=== PATIENT | female | born 1955 | race Caucasian/White ===

== ENCOUNTER 2021-03-27 12:45 | Outpatient (CLI) | payer OTHER, SELFPAY ==
--- NOTE | ~2021-03-27 | XR_ITS ---
XR knee RT 3V 03/27/2021 13:10 Indication: Right knee pain Procedure: 3 views right knee Comparison: No prior studies for comparison. Findings: There is mild-moderate tricompartment osteoarthritis of the right knee. No fracture or trau matic malalignment. No significant joint effusion. Impression: 1: Mild-moderate osteoarthritis of the right knee, most advanced in the patellofemoral compartment. Reviewed, dictated and finalized at location A. Impression: 1: Mild-moderate osteoarthritis of the right knee, most advanced in the patello femoral compartment.
== END 2021-03-27 12:46 | disposition home or self-care (01) ==
LOC: CHSIMG 12:48
PROVIDERS: PCP Internal Medicine; Visit Provider Internal Medicine
DX: M25.561 Pain in right knee (principal)
CPT/HCPCS: 73562

== ENCOUNTER → 2021-05-13 13:44 | Outpatient (CLI) | payer OTHER, SELFPAY ==
--- NOTE | ~2021-05-13 | MR_ITS ---
EXAMINATION: MR knee RT wo con DATE: 05/13/2021 14:59 INDICATION: Right knee pain TECHNIQUE: Magnetic resonance imaging (MRI) of the right knee was performed without intravenous contr ast. Sequences included coronal PD-weighted FSE, coronal PD-weighted FS FSE, sagittal T2-weighted FS E, sagittal PD-weighted FS FSE and axial PD weighted fat saturated FSE. COMPARISON: None. FINDINGS: Medial compartment: Longitudinal horizontal tear of the posterior horn and posterior body of the medial meniscus. There i s deep chondral ulceration and fissuring along the anterior to central weightbearing medial femoral c ondyle. Suggestion of minimal delamination at or near the bone chondral interface along the posterior margin of the region of ulceration. There is subtle cortical irregularity with tiny central subchond ral osteophytes at the region of fissuring. Small region of additional partial thickness chondral fis suring along the medial margin of the posterior weightbearing medial femoral condyle. Cartilage along the medial tibial plateau is relatively preserved. Lateral compartment: Small longitudinal tear extending obliquely to the inferior articular surface of the body and lateral side of the posterior horn of the lateral meniscus. Partial-thickness chondral fissuring without deg enerative subchondral changes at the central aspect of the lateral tibial plateau and juxtaposed ante rior to central weightbearing lateral femoral condyle. Patellofemoral compartment: Additional cartilage loss in places appearing to reach full and near full-thickness at the medial and lateral patellar facets with couple foci of underlying subarticular edema. Additional juxtaposed cho ndral ulceration with more irregular chondral surface and with more extensive scattered mild subartic ular edema at the medial and lateral trochlea and intervening trochlear groove. Ligaments and tendons: Anterior and posterior cruciate ligaments are normal. The medial collateral ligament and fibular neris ateral ligament complex are normal. The extensor mechanism is normal. The visualized medial and later al hamstring tendons as well as the iliotibial band are normal. Fluid: Minimal right knee joint effusion at the lateral gutter of the suprapatellar pouch. Moderate-sized Ba ker's cyst. There is also small amount of fluid in the pes anserinus bursa consistent with mild bursi tis. No loose osteochondral bodies identified. Osseous/other: Small bone island at the lateral trochlea. Normal marrow signal aside from the previously noted mild subarticular edema. No fracture or pathologic marrow replacing process. IMPRESSION: 1. Medial and lateral meniscal tears. 2. Tricompartmental osteoarthritis, moderate severity in the patellofemoral and mild in the medial an d lateral compartments, each with regions of high-grade chondromalacia. 3. Pes anserine bursitis. 4. Moderate-sized Lopes's cyst. Reviewed, dictated and finalized at location A. IMPRESSION: 1. Medial and lateral meniscal tears. 2. Tricompartmental osteoarthritis, moderate severity in the patellofemoral and mild in the medial and lateral compartments, each with regions of high-grade c hondromalacia. 3. Pes anserine bursitis. 4. Moderate-sized Lopes's cyst.
== END ==
PROVIDERS: PCP Internal Medicine; Visit Provider Orthopaedic Surgery
DX: M17.11 Unilateral primary osteoarthritis, right knee (principal); M71.21 Synovial cyst of popliteal space [Baker], right knee; S83.281A Other tear of lateral meniscus, current injury, right knee, initial encounter; S83.241A Other tear of medial meniscus, current injury, right knee, initial encounter; X58.XXXA Exposure to other specified factors, initial encounter
CPT/HCPCS: 73721

== ENCOUNTER 2021-05-27 11:03 | Outpatient (CLI) | payer OTHER, SELFPAY ==
--- NOTE | ~2021-05-27 | XR_ITS ---
XR chest 2V DATE: 05/27/2021 11:35 INDICATION: Preoperative evaluation. Smoker 35 years ago. TECHNIQUE: PA and lateral views COMPARISON: None FINDINGS: Normal heart size. No hilar or mediastinal enlargement. No pulmonary infiltrate or consol idation, pulmonary vascular congestion or pleural effusion or pneumothorax. IMPRESSION: Negative Reviewed, dictated and finalized at location A. BUYER IMPRESSION: Negative
[2021-05-27 11:15] LABS: Basophils Absolute Auto 0.08 K/mm3 (0.00-0.10); Basophils Percent Auto 1.5 % (0.0-1.0); Eosinophils Absolute Auto 0.39 K/mm3 (0.02-0.50); Eosinophils Percent Auto 7.2 % (1.0-6.0); Hematocrit 43.4 % (35.0-49.0); Hemoglobin 14.8 g/dL (12.0-15.0); Immature Granulocyte Absolute 0.01 K/mm3 (0.00-0.00); Immature Granulocyte Percent A 0.2 % (0.0-0.0); Lymphocytes Absolute Auto 1.61 K/mm3 (1.10-4.50); Lymphocytes Percent Auto 29.7 % (18.0-42.0); Mean Corpuscular HGB Conc 34.1 g/dL (32.0-36.0); Mean Corpuscular Hemoglobin 31.6 pg (27.0-31.0); Mean Corpuscular Volume 92.5 fL (78.0-102.0); Monocytes Absolute Auto 0.41 K/mm3 (0.10-0.90); Monocytes Percent Auto 7.6 % (2.0-11.0); Neutrophils Absolute Auto 2.9 K/mm3 (1.7-7.2); Neutrophils Percent Auto 53.8 % (50.0-70.0); Platelet Count Result 328 K/mm3 (150-420); Red Blood Count 4.69 M/mm3 (4.20-5.40); Red Cell Distribution Width 12.2 % (11.6-14.4); White Blood Count 5.4 K/mm3 (4.8-10.8)
[2021-05-27 11:16] LABS: Add Urine Microscopic? YES; Appearance Urine Clear (Clear); Bilirubin Urine Negative (Negative); Blood Urine Negative (Negative); Color Urine Light Yellow (Yellow); Glucose Urine UA Negative (Negative); Ketones Urine Negative (Negative); Leukocyte Esterase Ur 2+ (Negative); Nitrate Urine Negative (Negative); Protein Urine Negative (Negative); Urobilinogen Urine 0.2 mg/dL (0.2-1.0)
[2021-05-27 11:24] LABS: RBC Urine 0-2 /hpf (0-2); Squamous Epithelial Cell Urine Few /hpf (Few)
[2021-05-27 11:25] LABS: Bacteria Urine 1+ /hpf; Mucus Urine Few /lpf
[2021-05-27 12:03] LABS: Alanine Aminotransferase 29 U/L (14-59); Albumin Level 3.9 g/dL (3.4-5.0); Alkaline Phosphatase 88 U/L (46-116); Anion Gap 10 mmol/L (8-16); Aspartate Amino Transferase 22 U/L (15-37); Bilirubin,Total 0.6 mg/dL (0.00-1.00); Blood Urea Nitrogen 13 mg/dL (7-18); Calcium 9.1 mg/dL (8.5-10.1); Carbon Dioxide 26 mmol/L (21-32); Chloride 103 mmol/L (98-108); Estimated Glomerular Filt Rate > 60; Glucose 90 mg/dL (70-99); Osmolality Calculated 288 mOsm/kg (285-295); Potassium 4.6 mmol/L (3.5-5.1); Sodium 139 mmol/L (136-145); Total Protein 7.1 g/dL (6.4-8.2)
== END 2021-05-27 11:04 | disposition home or self-care (01) ==
LOC: CHSLAB 11:05
PROVIDERS: PCP Internal Medicine; Visit Provider Internal Medicine
DX: R94.31 Abnormal electrocardiogram [ECG] [EKG] (principal); Z01.818 Encounter for other preprocedural examination
CPT/HCPCS: 36415; 71046; 80053; 81001; 85025

== ENCOUNTER 2021-05-29 10:08 | Outpatient (CLI) | payer OTHER, SELFPAY ==
--- NOTE | 2021-05-29 10:50 | ECHO_ITS ---
Patient Info Name: Katiuska White Age: 66 years : 1955 Gender: Female Ht: 64 in Wt: 175 lbs BSA: 1.92 m2 HR: 57 bpm BP: 169 / 74 mmHg Exam Date: 05/29/2021 11:58 AM Exam Location: [facility] Patient Status: Outpatient Admit Date: 05/29/2021 Staff Ordering Physician: Andrew Shane MD Photographic Printer: Freda Troy Attending Provider: Andrew Shane MD Exam Type: CA echo doppler color flow Study Info Indications Z01.810 - Encounter for preprocedural cardiovascular examination Complete two-dimensional, color flow and Doppler transthoracic echocardiogram is performed. Strain analysis performed. Summary 1. Complete two-dimensional, color flow and Doppler transthoracic echocardiogram is performed. 2. Left ventricular chamber dimension is normal. 3. Left ventricular systolic function is normal, estimated at 60-65%. 4. The left ventricular diastolic function is grade I diastolic dysfunction. 5. E/e' 9 is minimally elevated. 6. Global longitudinal strain is normal at -22.0%. 7. There is trace tricuspid valve regurgitation. 8. No pulmonary hypertension, estimated pulmonary arterial systolic pressure is 27 mmHg. Left Ventricle E/e' 9 is minimally elevated. Global longitudinal strain is normal at -22.0%. Left ventricular chamber dimension is normal. Left ventricular systolic function is normal, estimated at 60-65%. The left ventricular diastolic function is grade I diastolic dysfunction. Right Ventricle Right ventricular systolic function is normal and with normal TAPSE 2.1 cm. Right ventricular chamber dimension is normal. Left Atria Left atrial chamber dimension is normal. Right Atria Right atrial chamber dimension is normal. Aortic Valve The aortic valve is trileaflet. There is no aortic valve stenosis. There is no aortic valve regurgitation. Pulmonic Valve There is no pulmonic regurgitation. Mitral Valve There is no mitral valve stenosis. There is no mitral valve regurgitation. Tricuspid Valve There is trace tricuspid valve regurgitation. No pulmonary hypertension, estimated pulmonary arterial systolic pressure is 27 mmHg. Pericardium/Pleural There is no pericardial effusion. Inferior Vena Cava Normal inferior vena cava with >50% collapse upon inspiration consistent with normal right atrial pressure, 5 mmHg. Aorta The aortic root size at the sinus of Valsalva is normal. Left Ventricular Outflow Tract Name Value Normal LVOT 2D LVOT Diameter 1.9 cm LVOT Doppler LVOT Peak Velocity 88 cm/s LVOT Peak Gradient 3 mmHg LVOT Mean Gradient 2 mmHg LVOT VTI 23 cm LVOT VTI/AV VTI Ratio 1.0 LVOT Stroke Volume 68 ml Mitral Valve Name Value Normal MV Doppler MV
== END 2021-05-29 10:09 | disposition home or self-care (01) ==
LOC: CHSIMG 10:10
PROVIDERS: PCP Internal Medicine; Visit Provider Internal Medicine
DX: R94.31 Abnormal electrocardiogram [ECG] [EKG] (principal); Z01.818 Encounter for other preprocedural examination
CPT/HCPCS: 93306

== ENCOUNTER → 2021-05-31 00:17 | Outpatient (CLI) | payer OTHER, SELFPAY ==
[2021-05-31 18:14] LABS: SARS-CoV-2 RNA PCR Negative
== END ==
PROVIDERS: PCP Internal Medicine; Visit Provider Orthopaedic Surgery
DX: Z01.812 Encounter for preprocedural laboratory examination (principal); Z20.822 Contact with and (suspected) exposure to COVID-19
CPT/HCPCS: C9803; U0003; U0005

== ENCOUNTER 2021-06-04 01:29 | Day surgery (SDC) | payer OTHER, SELFPAY ==
--- NOTE | 2021-05-28 10:48 | PC.NURSE ---
Report to the Outpatient Waiting Room, entrance under the green pavilion located off [facility], at time 0900 on date 06/04/21. OR Time: 1100. - You and your visitor will be asked a series of questions to screen for COVID 19 for your protection. - A mask is required within the hospital. - Only one visitor is allowed at this time. Patient visitors will be guided where to wait when not with patient. Preoperative COVID Testing Requirements: No COVID Test needed if: (proof is required; if not received patient will have Rapid Test prior to entry) - Patient has received COVID Vaccine at least 14 days prior to procedure date or - Patient has positive COVID test result within last 90 days of surgery date. COVID Test needed if above criteria is not met If not COVID vaccinated a COVID test must be conducted within 72 hours of surgery and patient is asked to isolate self from time of testing until procedure. You will go to the [facility] for your COVID testing. The [employer] [facility] [facility] site is located at the corner of [address] [facility]. COVID TEST: 05/31 AT 0810 You will only be called if COVID results are positive and your surgeon may reschedule your elective surgery date. Patients may have clear liquids (water, carbonated beverages, clear teas, apple juice) until 3 hours prior to surgery with a maximum of 20 ounces. - No food from midnight until time of surgery - Infants may have breast milk until 4 hours before surgery, infant formula 6 hours prior to surgery. - Children will be allowed to drink immediately following surgery. If applicable, please bring a bottle or sippy cup to assist with drinking. Juice, water, soda, and popsicles are readily available. For infants on formula, please bring formula the day of surgery. Pacifiers are allowed. Take the following medications with a SIP of water the morning of surgery: N/A Medications to discontinue per physician: VITAMINS/SUPPLEMENTS Date to take last dose: 05/31/21 Please no make-up, nail german, hairspray, perfume, deodorant, or body powder the day of surgery. No jewelry (including any body piercings) or valuables the day of surgery, leave them at home. Please take a shower or bath the night before, or the morning of, surgery with an antibacterial soap. Wear comfortable, loose fitting clothing. Children are encouraged to wear pajamas. HIBICLENS SHOWER X 3 DAYS - Jewelry must be removed prior to entering the operating room. Rings and piercings that are not removed may be cut off. - The hospital will not accept responsibility for valuables. - Please leave all valuables, including medications, at home the day of surgery. If you are going home after surgery, a licensed road train driver must drive you home. - NO public transportation without another adult. - We recommend that an adult stay with you for 24 hours following discharge. - We also recommend that you do not drive, make important decision, drink alcoholic beverages, or take any drugs that were not prescribed by your health care provider for at least 24 hours after your discharge time. For Pediatric surgeries, we recommend two adults accompany the child home (only one inside the building at this time). Follow any additional instructions given to you from your surgeon. Telephone instructions given to YUE BIGGS and asked if any additional questions and then verbalized understanding. Patient advised to call surgeon office or pre surgery nurse liaison [phone] if any additional questions.
[2021-06-04] VITALS (9 sets, daily range): BP systolic 108–141; BP diastolic 49–84; PULSE 55–67; RESP 10–16; TEMP 36.2–36.9; O2SAT 97–100
--- NOTE | 2021-06-04 07:22 | WPDHPUPDATE1 ---
History and Physical Update Update Date/Time: 06/04/21 07:22 History and Physical has been reviewed, including an updated exam of the patient. There are NO changes in the patient's condition. Risks, benefits, and alternatives have been discussed and questions answered. Patient agrees to proceed with procedure.
[2021-06-04] MEDS: ACETAMINOPHEN 500 MG TABLET 1000 MG PO (08:12)
[2021-06-04] MEDS: CELECOXIB 200 MG CAPSULE PO (08:13)
--- NOTE | 2021-06-04 08:22 | P.PNAN_ITS ---
Anes - Initial Pre Proc Eval Procedure: Operation Date: 06/04/21 09:00 Proposed Procedures p Right Knee Arthroscopy, Proceed As Indicated - Ace Ruiz MD Date/Time: 06/04/21 08:22 Surgeon: Ace Ruiz MD Pre Op Diagnosis: right knee medial and lateral meniscus tear Patient Data Age: 66 Gender: F Height: 1.63 m Weight: 81.6 kg Allergies Allergy/AdvReac Type Severity Reaction Status Date / Time codeine AdvReac Intermediate Nausea and Verified 06/04/21 08:09 Vomiting Home Medications Medication Instructions Recorded Confirmed Type calcium carbonate 260 mg calcium 260 mg PO DAILY 04/11/21 06/04/21 History (648 mg) tablet cholecalciferol (vitamin D3) 25 25 mcg PO DAILY 04/11/21 06/04/21 History mcg (1,000 unit) capsule ferrous gluconate 240 mg (27 mg 240 mg PO DAILY 04/11/21 06/04/21 History iron) tablet multivitamin 1 tablet PO DAILY 04/11/21 06/04/21 History chlorhexidine gluconate 4 % 1 applic TOPICAL ONCE #237 ml 05/26/21 05/28/21 Rx topical liquid Patient hx anesthesia problems: none Family hx anesthesia problems: none Results Review: All pre-operative results and documents have been reviewed as part of the pre-operative evaluation. [facility] Past Medical History Medical History History of anesthesia complications Right knee pain Surgical History Surgical History History of bunionectomy 1997 History of hand surgery 2008 History of tubal ligation 1988 Family History Family History Unknown Family history of cancer prostate, breast, and leukemia Other Family history of arthritis Heart disease Hypertension Social History Social History Smoking packs per day: 2 Smoking cigarettes per day: 40.0 Years smoked: 8 Smoking pack-years: 16.00 Smoking status: Former smoker Tobacco type: cigarettes Smoking end date: 07/12/83 Alcohol intake: current Drinks per week: 7 Substance use: never Substance use type: does not use Living arrangements: with family Gender identity (if verbalized by the patient): Female Spiritual care concerns: No Anes - Eval Final PreProcedure Day of Procedure 06/04/21 08:22 Patient weight: obese Heart: regular rate and rhythm Lungs: clear to auscultation Airway: Mallampati scale class 1 Neurological: alert and oriented Last oral intake: >/= 8 hours ASA classification: II Emergent: no Anesthetic plan: proceed Anesthesia type and monitoring: general LMA and standard monitoring Results Review: All pre-operative results and documents have been reviewed as part of the pre-operative evaluation. Informed Consent: The patient's anesthetic plan and its attendant risks and benefits were discussed with the patient/family/POA. Questions were solicited and answers provided to the satisfaction of the patient/family/POA.
[2021-06-04] MEDS: LACTATED RINGERS 1,000 ML 30 ML IV CONT (08:38)
[2021-06-04] MEDS: ceFAZolin 2 GM/D5W 50 ML 2 GM/50 ML BAG IVPB (08:43)
[2021-06-04] MEDS: methylPREDNISolone ACETATE 80 MG/ML VIAL IM (09:15)
--- NOTE | 2021-06-04 10:04 | W.PM.PROC2 ---
Procedure Note - Detailed Date of Procedure 06/04/21 Pre-op Diagnosis right knee medial and lateral meniscus tear Post-op Diagnosis same Procedure Performed RIGHT KNEE SCOPE Surgeon Ace Ruiz MD Anesthesia general Description of Procedure PATIENT WAS TAKEN TO THE OR. RIGHT LEG WAS PREPPED AND DRAPED STERILE. TROCARS WERE PLACED IN THE USUAL FASHION. CAMERA WAS INTRODUCED. THERE WAS CHONDROMALACIA TO THE PATELLA FEMORAL JOINT. THERE WAS A LOT OF SYNOVITIS IN ALL COMPARTMENTS. THE MEDIAL COMPARTMENT SHOWED CHONDROMALACIA TO THE MEDIAL FEMORAL CONDYLE. A SHAVER WAS USED TO PREFORM A CHONDROPLASTY. THERE WAS A COMPLEX MEDIAL MENISCUS TEAR. THE TEAR WAS RESECTED WITH A BITER AND A SHAVER DOWN TO A SMOOTH BASE. ABOUT 30% OF THE MENISCUS WAS REMOVED. THE ACL WAS INTACT. THERE WAS A LARGE OSTEOPHYTE THAT WAS RESECTED IN THE NOTCH. THE LATERAL MENISCUS WAS TORN AT THE ANTERIOR HORN AND THE MID SUBSTANCE. THE TEAR WAS RESECTED. THE LAT COMPARTMENT HAD GRADE 2 CHONDROMALACIA AT THE LATERAL PLATEAU. CHONDROPLASTY WAS PREFORMED. A SYNOVECTOMY WAS PREFORMED WELL. THE PATELLO FEMORAL JOINT UNDERWENT CHONDROPLASTY. THERE WAS GRADE 3 CHONDROMALACIA IN MOST OF THE TROCHLEA AND PART OF THE PATELLA. SYNOVECTOMY WAS PREFORMED IN THE SUPERIOR MEDIAL COMPARTMENT. THE WOUNDS WERE APPROXIMATED WITH 4.0 NYLON. STERILE DRESSING WAS APPLIED. PATIENT WAS EXTUBATED. Estimated Blood Loss 5 Complications No immediate complications Condition stable Disposition PACU
[2021-06-04] MEDS: fentaNYL CITRATE INJ (*CRX) 100 MCG/2 ML VIAL 25 MCG IV PUSH ×2 (10:14→10:17)
[2021-06-04] MEDS: oxyCODONE HCL (*CRX) 5 MG TAB IR PO (10:55)
--- NOTE | 2021-06-04 11:08 | SUR.PHASEII ---
PT called for eval.
--- NOTE | 2021-06-04 11:24 | SUR.PHASEII ---
PT at bedside
== END 2021-06-04 11:58 | disposition home or self-care (01) ==
PROVIDERS: PCP Internal Medicine; Visit Provider Orthopaedic Surgery
PROC: (CPT 29870; principal; 2021-06-04 09:00)
DX: M23.231 Derangement of other medial meniscus due to old tear or injury, right knee (principal); M23.241 Derangement of anterior horn of lateral meniscus due to old tear or injury, right knee; M65.861 Other synovitis and tenosynovitis, right lower leg; M25.561 Pain in right knee; M22.41 Chondromalacia patellae, right knee; E66.9 Obesity, unspecified; Z68.30 Body mass index [BMI] 30.0-30.9, adult; Z87.891 Personal history of nicotine dependence
CPT/HCPCS: 29880; 97161; A9270; C9803; J0690; J1040; J1100; J2250; J2405; J2704; J3010; J7120; U0003; U0005

== ENCOUNTER 2022-11-05 11:51 | Outpatient (CLI) | payer MEDICARE, SELFPAY ==
--- NOTE | ~2022-11-05 | XR_ITS ---
Left Knee Technique: AP, lateral, and sunrise views were obtained. Clinical History: Pain Findings: No fracture or dislocation is seen. Osseous alignment is anatomic. Minimal patellar spurrin g noted. Soft tissues are unremarkable. No joint effusion is seen. Impression: Minimal patellar spurring. Reviewed, dictated and finalized at location . Impression: Minimal patellar spurring.
== END 2022-11-05 11:52 | disposition home or self-care (01) ==
LOC: CHSIMG 11:56
PROVIDERS: PCP Internal Medicine; Visit Provider Internal Medicine
DX: M25.562 Pain in left knee (principal); M76.52 Patellar tendinitis, left knee
CPT/HCPCS: 73562

== ENCOUNTER 2022-12-16 00:52 | Day surgery (SDC) | payer MEDICARE, SELFPAY ==
[2022-12-09 09:15] VITALS: BMI 26.1
[2022-12-16 07:21] VITALS: BP 139/64; PULSE 61; RESP 19; TEMP 36.4; O2SAT 100
[2022-12-16] MEDS: LACTATED RINGERS 1,000 ML 150 ML IV CONT (07:33)
--- NOTE | 2022-12-16 07:41 | WPDANESEPPF ---
Anes - Initial Pre Proc Eval Procedure: Operation Date: 12/16/22 08:30 Proposed Procedures p Colonoscopy - Abhinav Avila MD Date/Time: 12/16/22 07:41 Surgeon: Abhinav Avila MD Pre Op Diagnosis: hx colon polyps Patient Data Age: 67 Gender: F Height: 1.63 m Weight: 68.4 kg Last Vital Signs Temp 36.4 C L 12/16/22 07:21 Pulse 61 12/16/22 07:21 Resp 19 12/16/22 07:21 BP 139/64 12/16/22 07:21 Pulse Ox 100 12/16/22 07:21 O2 Del Method Room Air 12/16/22 07:21 Allergies Allergy/AdvReac Type Severity Reaction Status Date / Time codeine AdvReac Intermediate Nausea and Verified 12/16/22 07:20 Vomiting Home Medications Medication Instructions Recorded Confirmed Type calcium carbonate 260 mg calcium 260 mg PO DAILY 04/11/21 12/09/22 History (648 mg) tablet cholecalciferol (vitamin D3) 25 25 mcg PO DAILY 04/11/21 12/09/22 History mcg (1,000 unit) capsule ferrous gluconate 240 mg (27 mg 240 mg PO DAILY 04/11/21 12/09/22 History iron) tablet (Ferate) multivitamin (Daily Multi-Vitamin 1 tablet PO DAILY 04/11/21 12/09/22 History tablet) chlorhexidine gluconate 4 % 1 applic topical ONCE #237 mL 05/26/21 12/09/22 Rx topical liquid (Hibiclens) Patient hx anesthesia problems: none Family hx anesthesia problems: none Results Review: All pre-operative results and documents have been reviewed as part of the pre-operative evaluation. [facility] Past Medical History Medical History History of anesthesia complications Right knee pain Surgical History Surgical History History of bunionectomy 1997 History of hand surgery 2007 History of tubal ligation 1988 Family History Family History Unknown Family history of cancer prostate, breast, and leukemia Other Family history of arthritis Heart disease Hypertension Social History Social History Smoking packs per day: 2 Smoking cigarettes per day: 40.0 Years smoked: 8 Smoking pack-years: 16.00 Smoking status: Former smoker Tobacco type: cigarettes Smoking end date: 07/12/83 Alcohol intake: current Drinks per week: 7 Alcohol use details: wine in the evening Substance use: never Substance use type: does not use Living arrangements: with family Occupation/Education: retired Gender identity (if verbalized by the patient): Female Spiritual care concerns: No Anes - Eval Final PreProcedure Day of Procedure 12/16/22 07:41 Patient weight: normal Heart: regular rate and rhythm Lungs: clear to auscultation Airway: Mallampati scale class 1 Neurological: alert and oriented Last oral intake: >/= 8 hours ASA classification: II Emergent: no Anesthetic plan: proceed Anesthesia type and monitoring: general GIVS and standard monitoring Results Review: All pre-operative results and documents have been reviewed as part of the pre-operative evaluation. Informed Consent: The patient's anesthetic plan and its attendant risks and benefits were discussed with the patient/family/POA. Questions were solicited and answers provided to the satisfaction of the patient/family/POA.
--- NOTE | 2022-12-16 08:14 | PM.HPGS ---
History of Present Illness History of Present Illness Consent: Risks, benefits, and alternatives have been discussed and questions answered. Patient agrees to proceed with procedure. Chief complaint: hx colon polyps Narrative: Katiuska White is a 67 year old female here for screening colonoscopy, last one about 6 years ago Review of Systems Constitutional: Constitutional: Denies headache(s) and Denies weakness Eyes: Eyes: Denies blurry vision ENT: Reports Normal hearing present, Denies headache(s) and Denies neck pain Cardiovascular: Cardiovascular: Denies chest pain and Denies dyspnea Respiratory: Respiratory: Denies dyspnea Gastrointestinal: Gastrointestinal: Reports no additional gastrointestinal complaints Genitourinary: Genitourinary: Denies dysuria Musculoskeletal: Musculoskeletal: Denies neck pain Integumentary/Breasts: Skin/Breast: Denies dry skin Neurologic: Reports Normal hearing present, Denies headache(s) and Denies weakness Psychiatric: Psychiatric: Denies anxiety Endocrine: Endocrine: Denies change in body appearance Hematologic/Lymphatic: Hematologic/Lymphatic: Denies easy bleeding Allergic/Immunologic: Allergic/Immunologic: Denies urticaria PMFSH Past Medical History Medical History (Updated 12/16/22 @ 08:14 by Abhinav Avila MD) Colon cancer screening History of anesthesia complications Right knee pain Surgical History Surgical History History of bunionectomy 1997 History of hand surgery 2008 History of tubal ligation 1988 Family History Family History Unknown Family history of cancer prostate, breast, and leukemia Other Family history of arthritis Heart disease Hypertension Social History Social History Smoking packs per day: 2 Smoking cigarettes per day: 40.0 Years smoked: 8 Smoking pack-years: 16.00 Smoking status: Former smoker Tobacco type: cigarettes Smoking end date: 07/12/83 Alcohol intake: current Drinks per week: 7 Alcohol use details: wine in the evening Substance use: never Substance use type: does not use Living arrangements: with family Occupation/Education: retired Gender identity (if verbalized by the patient): Female Spiritual care concerns: No Meds Home Medications and Allergies Home Medications Medication Instructions Recorded Confirmed Type calcium carbonate 260 mg calcium 260 mg PO DAILY 04/11/21 12/09/22 History (648 mg) tablet cholecalciferol (vitamin D3) 25 25 mcg PO DAILY 04/11/21 12/09/22 History mcg (1,000 unit) capsule ferrous gluconate 240 mg (27 mg 240 mg PO DAILY 04/11/21 12/09/22 History iron) tablet (Ferate) multivitamin (Daily Multi-Vitamin 1 tablet PO DAILY 04/11/21 12/09/22 History tablet) chlorhexidine gluconate 4 % 1 applic topical ONCE #237 mL 05/26/21 12/09/22 Rx topical liquid (Hibiclens) Allergies Allergy/AdvReac Type Severity Reaction Status Date / Time codeine AdvReac Intermediate Nausea and Verified 12/16/22 07:20 Vomiting Vital Signs Vital Signs - 24 hr 12/16/22 07:21 Temperature 97.5 F L Pulse Rate 61 Respiratory Rate 19 Blood Pressure 139/64 Pulse Oximetry 100 Oxygen Delivery Room Air Exam Const: General: comfortable and no acute distress HENMT: Face/Nose/Sinus: Normal nares present Eyes: General: appearance normal, both eyes and all related structures Neck: Neck: no JVD Resp: Auscultation: clear to auscultation bilaterally Cardio: Rate: regular rate Rhythm: regular rhythm GI: Inspection: non-distended GI Palp: Yes Soft to palpation Skin: General skin exam: normal color Neuro: General: gait normal Speech: normal speech Extrem: General: normal to inspection Psych: Mental Status: mental status grossly normal
[2022-12-16 08:33] VITALS: BP 117/59; PULSE 60; RESP 20; O2SAT 95
[2022-12-16 08:43] VITALS: BP 134/68; PULSE 58; RESP 18; O2SAT 100
[2022-12-16 08:53] VITALS: BP 142/58; PULSE 52; RESP 18; O2SAT 99
== END 2022-12-16 09:03 | disposition home or self-care (01) ==
PROVIDERS: PCP Internal Medicine; Visit Provider Internal Medicine Gastroenterology
PROC: 0DJD8ZZ Inspection of Lower Intestinal Tract, Via Natural or Artificial Opening Endoscopic (ICD-10-PCS; CPT 45378; principal; 2022-12-16 08:30)
DX: Z12.11 Encounter for screening for malignant neoplasm of colon (principal); K57.30 Diverticulosis of large intestine without perforation or abscess without bleeding; K64.8 Other hemorrhoids; Z86.010 Personal history of colon polyps; Z87.891 Personal history of nicotine dependence
CPT/HCPCS: G0105; J2704; J7120

== ENCOUNTER 2023-05-26 07:56 | Outpatient (CLI) | payer MEDICARE, SELFPAY ==
[2023-05-26 08:12] LABS: Appearance Urine Clear (Clear); Bilirubin Urine Negative (Negative); Blood Urine Negative (Negative); Color Urine Yellow (Yellow); Glucose Urine UA Negative (Negative); Ketones Urine Negative (Negative); Leukocyte Esterase Ur Negative LEU/UL (Negative); Nitrate Urine Negative (Negative); Protein Urine Negative (Negative); Specific Grav Ur 1.015 (1.010-1.020); Urobilinogen Urine 0.2 mg/dL (0.2-1.0); pH Urine 7.5 (5.0-8.0)
[2023-05-26 08:13] LABS: Basophils Absolute Auto 0.05 K/mm3 (0.00-0.10); Eosinophils Absolute Auto 0.18 K/mm3 (0.02-0.50); Eosinophils Percent Auto 3.6 % (1.0-6.0); Hematocrit 41.2 % (35.0-42.0); Hemoglobin 13.7 g/dL (11.7-13.8); Immature Granulocyte Absolute 0.01 K/mm3 (0.00-0.00); Immature Granulocyte Percent A 0.2 % (0.0-0.0); Lymphocytes Absolute Auto 1.27 K/mm3 (1.10-4.50); Lymphocytes Percent Auto 25.7 % (18.0-42.0); Mean Corpuscular HGB Conc 33.3 g/dL (32.0-36.0); Mean Corpuscular Hemoglobin 30.9 pg (27.0-31.0); Mean Platelet Volume 10.4 fl (9.2-11.8); Monocytes Percent Auto 8.1 % (2.0-11.0); Neutrophils Percent Auto 61.4 % (50.0-70.0); Platelet Count Result 333 K/mm3 (150-420); Red Blood Count 4.43 M/mm3 (4.20-5.40); Red Cell Distribution Width 12.2 % (11.6-14.4); White Blood Count 4.9 K/mm3 (4.8-10.8)
[2023-05-26 08:19] LABS: Add Urine Microscopic? NO
[2023-05-26 09:04] LABS: Alanine Aminotransferase 33 U/L (14-59); Albumin Level 3.6 g/dL (3.4-5.0); Alkaline Phosphatase 92 U/L (46-116); Anion Gap 6 mmol/L (8-16); Aspartate Amino Transferase 27 U/L (15-37); Bilirubin,Total 0.8 mg/dL (0.00-1.00); Blood Urea Nitrogen 15 mg/dL (7-18); Calcium 9.1 mg/dL (8.5-10.1); Carbon Dioxide 30 mmol/L (21-32); Chloride 104 mmol/L (98-108); Cholesterol 196 mg/dL (0-200); Estimated Glomerular Filt Rate > 60; Glucose 85 mg/dL (70-99); HDL Direct 75 mg/dL (40-60); LDL Cholesterol Calculated 111 mg/dL (<130); Osmolality Calculated 289 mOsm/kg (285-295); Potassium 4.4 mmol/L (3.5-5.1); Sodium 140 mmol/L (136-145); Thyroid Stimulating Hormone 3.13 uIU/mL (0.36-3.74); Total Protein 6.8 g/dL (6.4-8.2); Triglycerides 50 mg/dL (0-150)
[2023-05-31 18:11] LABS: Vitamin D 25 Hydroxy 35 ng/mL (30-100)
== END 2023-05-26 07:57 | disposition home or self-care (01) ==
LOC: CHSLAB 07:59
PROVIDERS: PCP Internal Medicine; Visit Provider Nurse Practitioner Family
DX: R42 Dizziness and giddiness (principal); E78.5 Hyperlipidemia, unspecified; E55.9 Vitamin D deficiency, unspecified; R53.83 Other fatigue
CPT/HCPCS: 36415; 80053; 80061; 81003; 82306; 84439; 84443; 85025

== ENCOUNTER 2023-06-11 07:41 | Outpatient (CLI) | payer MEDICARE, SELFPAY ==
--- NOTE | ~2023-06-11 | MM_ITS ---
EXAMINATION: MM screening katerine BI w cyndee HISTORY: Screening mammogram TECHNIQUE: Craniocaudal and mediolateral oblique 3-D tomosynthesis images were obtained and synthetic 2-D images were generated. CAD analysis was submitted and interpreted. COMPARISON: 04/07/2018 bilateral screening mammogram BREAST PARENCHYMAL COMPOSITION: The breasts are heterogeneously dense, which may obscure small masses . FINDINGS: History of left benign lumpectomy. Stable mild fibroglandular asymmetry. There is no eviden ce of suspicious mass, calcification, or architectural distortion to suggest malignancy in either trudy ast. There has been no suspicious interval change. IMPRESSION: 1. No mammographic evidence of malignancy. 2. Recommend routine screening mammography in one year. BI-RADS Category 2: Benign finding(s). Reviewed, dictated and finalized at location A. LE INSTALLER
== END 2023-06-11 07:42 | disposition home or self-care (01) ==
PROVIDERS: PCP Internal Medicine; Visit Provider Nurse Practitioner Family
DX: Z12.31 Encounter for screening mammogram for malignant neoplasm of breast (principal)
CPT/HCPCS: 77063; 77067

== ENCOUNTER 2024-12-21 11:49 | Outpatient (CLI) | payer MEDICARE, SELFPAY ==
--- NOTE | ~2024-12-21 | DEXA_ITS ---
Bone Density Report Name: YUE BIGGS Age: 69 Sex: Female Ethnicity: White Date of : 1955 Indication: postmenopausal; screening for osteoporosis; Referring Provider: PATT*ELIE Lockett Study: Bone densitometry was performed. Exam Date: December 21, 2024 Accession number: [id number] Bone Density: Region BMD T-score Z-score Classification AP Spine(L1, L2) 0.894 -0.8 1.1 Normal Femoral Neck (Left) 0.679 -1.5 0.1 Osteopenia Total Hip (Left) 0.880 -0.5 0.9 Normal Femoral Neck (Right) 0.719 -1.2 0.5 Osteopenia Total Hip (Right) 0.859 -0.7 0.7 Normal Femoral Neck Mean 0.699 -1.4 0.3 Osteopenia Total Hip Mean 0.869 -0.6 0.8 Normal World Health Organization criteria for BMD impression classify patients as: Normal (T-score at or above -1.0), Osteopenia (T-score between -1.0 and -2.5), or Osteoporosis (T-score at or below -2.5). 10-year Fracture Risk(1): Major Osteoporotic Fracture 9.3% Hip Fracture 1.1% Reported Risk Factors: [place] (), Neck BMD=0.679, BMI=30.0 (1) FRAX(R) Version 3.08. Fracture probability calculated for an untreated patient. Fracture probability may be lower if the patient has received treatment. Clinical Information Provided by Patient: Has used the following medications: Vitamin D, Calcium, multi Patient maximum height was 64 Menopause Age: 57 No regular weight bearing exercise Drinks caffeinated beverages Onset of menses at age 12 Number of children 4 Impression: The patient has low bone mass, based on the Left Femoral Neck T-score. Discussion: BONE DENSITY IS LOW AT ONE OR MORE SKELETAL SITES. This patient's lowest T-score is low at one or more skeletal sites. It meets the World Health Organization's (WHO) criteria for ?low bone mass? (T-score between -1.0 and -2.5). The patient's 10-year risk of fracture as calculated by FRAX is less than the threshold where pharmacological therapy is recommended by the National Osteoporosis Foundation (NOF). However, all treatment decisions require clinical judgment and consideration of individual patient factors, including patient preferences, comorbidities, previous drug use, risk factors not captured in the FRAX model (e.g., frailty, falls, vitamin D deficiency, increased bone turnover, interval significant decline in bone density) and possible under or overestimation of fracture risk by FRAX. The patient should follow a healthful lifestyle (good nutrition with adequate calcium and vitamin D, and appropriate weight-bearing exercise). Follow-Up: Consider repeating this study in 2 to 3 years to reassess this patient's status, or sooner if there is some new clinical indication. Reported by: ART on 12/21/2024 12:25:00 PM. Reviewed, dictated and finalized at location A.
--- NOTE | ~2024-12-21 | MM_ITS ---
EXAMINATION: MM screening katerine BI w cyndee HISTORY: Screening TECHNIQUE: Craniocaudal and mediolateral oblique 3-D tomosynthesis images were obtained and synthetic 2-D images were generated. CAD analysis was submitted and interpreted. COMPARISON: Comparison to multiple prior studies sequentially, with oldest reviewed study dated 04/07. BREAST PARENCHYMAL COMPOSITION: Not dense: There are scattered areas of fibroglandular density. FINDINGS: There is no evidence of suspicious mass, calcification, or architectural distortion to sugg est malignancy in either breast. There has been no suspicious interval change. IMPRESSION: 1. No mammographic evidence of malignancy. 2. Recommend routine screening mammography in one year. BI-RADS Category 1: Negative Reviewed, dictated and finalized at location B.
--- OUTSIDE RECORDS SUMMARY | 2024-12-21 12:40 | XMS_ITS | Clinical Summary ---
Author Organization [address] Address [address] [place] [id number] Care Team Providers Care Hot Mill Operator Name Role Phone Guillermina Xie Primary Care Provider [phone] Norm Santiago MD Unavailable [phone] Allergies Active Allergy Reactions Criticality Noted Date Comments Codeine Phosphate Nausea & Vomiting Low 12/09/2018 Medications cholecalciferol (VITAMIN D-3) 1,000 unit capsule 1,000 Units daily 11/08/2017 Active clobetasol (TEMOVATE) 0.05 % cream 07/03/2019 Active tacrolimus (PROTOPIC) 0.1 % ointment 07/03/2019 Active Active Problems Problem Noted Date Diagnosed Date BMI 29.0-29.9,adult 07/17/2019 Assessment & Plan (07/17/2019 11:27 AM MEMBER OF CONGRESS): Educated patient on healthy diet/exercise plan. Exercise 150min-300min per week of moderate intensity. Diet: good, healthy protein (eggs, nuts, peanut butter, chicken, fish, turkey, less pork/beef), lots of vegetables, less carbohydrates and less sugar. Flexural eczema 07/17/2019 Assessment & Plan (07/17/2019 11:27 AM MEMBER OF CONGRESS): Stable on meds Health maintenance examination 06/13/2019 Overview (07/17/2019): PMH: 07/17/2019 Last pap: 10/2017 Last mammogram: 03/2018 Last dexa: Last colonoscopy/cologuard: 02/2013 repeat 2018 Last Hep C: 10/2017 Last tdap: 10/25/2009, 07/17/2019 Last Prevnar/pneumovax: Last Shingrix: 02/2018, 10/2017 Last eye exam: 2019 Assessment & Plan (07/17/2019 9:34 AM MEMBER OF CONGRESS): PMH: 07/17/2019 Last pap: 10/2017 Last mammogram: 03/2018 Last dexa: Last colonoscopy/cologuard: 02/2013 repeat 2018 Last Hep C: 10/2017 Last tdap: 10/25/2009, 07/17/2019 Last Prevnar/pneumovax: Last Shingrix: 02/2018, 10/2017 Last eye exam: 2019 Vitamin D deficiency 11/08/2017 Assessment & Plan (07/17/2019 11:27 AM MEMBER OF CONGRESS): Stable, continue vit d CMC arthritis, thumb, degenerative 09/16/2015 Assessment & Plan (07/17/2019 11:27 AM MEMBER OF CONGRESS): Stable prn otc meds (ibu or tylenol) Resolved Problems Problem Noted Date Diagnosed Date Resolved Date Neck pain 12/09/2018 06/13/2019 Assessment & Plan (12/09/2018 4:06 PM CDT): Handout given on neck exercises. Patient to try massage. Patient to try moist heat 3 times a day. Patient to try [id number] anti-inflammatories as needed. If no improvement in the next 5-7 days will order physical therapy. Vertigo 12/09/2018 06/13/2019 Assessment & Plan (12/09/2018 4:07 PM CDT): Patient's vertigo could be due to possible allergy issues. Patient will continue taking her allergy medicine. An adding a steroid nasal spray. Handout given on this vestibular exercises to perform at home. Return to clinic as needed Immunizations Immunization Administration Dates Next Due Influenza, Unspecified 04/08/2018,06/22/2017 Tdap 07/17/2019,10/25/2009 ZOSTER Recombinant 02/21/2018,10/23/2017 Surgical History Surgery Date Site/Laterality Comments TUBAL LIGATION 07/12/1987 - 07/11/1988 BUNIONECTOMY 07/12/2007 - 07/11/2008 Bilateral HAND SURGERY 07/12/2016 - 07/11/2017 Right COLONOSCOPY 02/09/2013 - 03/11/2013 repeat 2018 Medical History Medical History Date Comments Vertigo 12/09/2018 Family History Medical History Relation Name Comments Rheum arthritis Brother 1 corneal transplant Brother 1 Leukemia Brother 2 Hypertension Brother 3 Prostate cancer Father Deep vein thrombosis Mother Pectus carinatum Mother Pulmonary embolism Mother Breast cancer Sister Graves' disease Sister Hypertension Sister Relation Name Status Comments Brother 1 Brother 2 Brother 3 Alive Brother 4 Alive Father (Age 84) Mother (Age 93) Sister Alive Social History Tobacco Use Types Packs/Day Years Used Date Smoking Tobacco: Former Cigarettes Q uit: 07/12/1982 Smokeless Tobacco: Never Alcohol Use Standard Drinks/Week Comments Yes 0 (1 standard drink = 0.6 oz pur e alcohol) AUDIT-C Answer Date Recorded Frequency of Alcohol Consumption 2-3 times a wee k 06/16/2019 Average Number of Drinks Not on file 019 Frequency of Binge Drinking Not on file 12/2018 PHQ-2 Answer Date Recorded PHQ-2 Total Score (If total score is 3 or more points, staff should administer the PHQ-9) 0 02/07/2021 Personal Safety Answer Date Recorded Getting School Help Needed Not on file 09/04 Comments No Sex and Gender Information Value Date Recorded Sex Assigned at Not on file Legal Sex Female 3:08 AM MEMBER OF CONGRESS Gender Identity Not on file Sexual Orientation Not on file Obstetrics History Last Filed Vital Signs Vital Sign Reading Time Taken Comments Blood Pressure 128/80 02/07/2021 12:54 PM CDT Pulse 76 02/07/2021 12:54 PM CDT Temperature 36.4 C (97.6 F) 02/07/2021 12:54 PM CDT Respiratory Rate 17 02/07/2021 12:54 PM CDT Oxygen Saturation 99% 02/07/2021 12:54 PM CDT Inhaled Oxygen Concentration - - Weight 78.7 kg (173 lb 9.6 oz) 02/07/2021 12:54 PM CDT Height 162.6 cm (5' 4) 02/07/2021 12:54 PM CDT Body Mass Index 29.8 02/07/2021 12:54 PM CDT Plan of Treatment Not on file Insurance [facility] CMR Care Teams Hot Mill Operator Relationship Specialty Start Date End Date Guillermina Xie PA [address] [place] [address] PCP - General Physician Snag Grinder 12/06/18 Norm Santiago MD [address] [place], [place] [id number] Consulting Physician Family Medicine 12/06/18
--- OUTSIDE RECORDS SUMMARY | 2024-12-21 12:40 | XMS_ITS | Referral Summary ---
Author Organization [address] Address [address] [place] [id number] Care Team Providers Care Hospital Television Rental Clerk Name Role Phone Guillermina Xie Primary Care Provider [phone] Norm Santiago MD Unavailable [phone] Allergies Active Allergy Reactions Criticality Noted Date Comments Codeine Phosphate Nausea & Vomiting Low 12/09/2018 Medications cholecalciferol (VITAMIN D-3) 1,000 unit capsule 1,000 Units daily 11/08/2017 Active clobetasol (TEMOVATE) 0.05 % cream 07/03/2019 Active tacrolimus (PROTOPIC) 0.1 % ointment 07/03/2019 Active Active Problems Problem Noted Date Diagnosed Date BMI 29.0-29.9,adult 07/17/2019 Assessment & Plan (07/17/2019 11:27 AM PLASTICS PROCESS HAND): Educated patient on healthy diet/exercise plan. Exercise 150min-300min per week of moderate intensity. Diet: good, healthy protein (eggs, nuts, peanut butter, chicken, fish, turkey, less pork/beef), lots of vegetables, less carbohydrates and less sugar. Flexural eczema 07/17/2019 Assessment & Plan (07/17/2019 11:27 AM PLASTICS PROCESS HAND): Stable on meds Health maintenance examination 06/13/2019 Overview (07/17/2019): PMH: 07/17/2019 Last pap: 10/2017 Last mammogram: 03/2018 Last dexa: Last colonoscopy/cologuard: 02/2013 repeat 2018 Last Hep C: 10/2017 Last tdap: 10/25/2009, 07/17/2019 Last Prevnar/pneumovax: Last Shingrix: 02/2018, 10/2017 Last eye exam: 2019 Assessment & Plan (07/17/2019 9:34 AM PLASTICS PROCESS HAND): PMH: 07/17/2019 Last pap: 10/2017 Last mammogram: 03/2018 Last dexa: Last colonoscopy/cologuard: 02/2013 repeat 2018 Last Hep C: 10/2017 Last tdap: 10/25/2009, 07/17/2019 Last Prevnar/pneumovax: Last Shingrix: 02/2018, 10/2017 Last eye exam: 2019 Vitamin D deficiency 11/08/2017 Assessment & Plan (07/17/2019 11:27 AM PLASTICS PROCESS HAND): Stable, continue vit d CMC arthritis, thumb, degenerative 09/16/2015 Assessment & Plan (07/17/2019 11:27 AM PLASTICS PROCESS HAND): Stable prn otc meds (ibu or tylenol) Resolved Problems Problem Noted Date Diagnosed Date Resolved Date Neck pain 12/09/2018 06/13/2019 Assessment & Plan (12/09/2018 4:06 PM CDT): Handout given on neck exercises. Patient to try massage. Patient to try moist heat 3 times a day. Patient to try [id number] anti-inflammatories as needed. If no improvement in [...] Unspecified 04/08/2018,06/22/2017 Tdap 07/17/2019,10/25/2009 ZOSTER Recombinant 02/21/2018,10/23/2017 Social History Tobacco Use Types Packs/Day Years [...] on file Legal Sex Female 3:08 AM PLASTICS PROCESS HAND Gender Identity Not on file Sexual Orientation Not on file Last Filed Vital Signs Vital Sign Reading [...] Plan of Treatment Not on file Insurance [facility] CMR Care Teams Hospital Television Rental Clerk Relationship Specialty Start Date End Date Guillermina Xie PA [address] [place] [address] PCP - General Physician Cut Out And Marking Machine Operator 12/06/18 Norm Santiago MD [address] [place] [address] Consulting Physician Family Medicine 12/06/18
--- OUTSIDE RECORDS SUMMARY | 2024-12-21 12:40 | XMS_ITS | Encounter Summary ---
Author Organization [facility] Facility Care Team Providers Care Brusher Name Role Phone Guillermina Xie Primary Care Provider [phone] Norm Santiago MD Unavailable + [phone] Encounter Details Date Type Department Care Team (Latest Contact Info) Description 09/17/2015 Orders Only [facility] CLINCONV ProviderPrema MD [address] [place] [id number] Social History Tobacco Use Types Packs/Day Years Used Date Smoking Tobacco: Never Assessed Comments Unknown Sex and Gender Information Value Date Recorded Sex Assigned at Not on file Legal Sex Female 3:08 AM REDUCTION FURNACE OPERATOR HELPER Gender Identity Not on file Sexual Orientation Not on file documented as of this encounter Plan of Treatment Not on file documented as of this encounter Procedures Procedure Name Priority Date/Time Associated Diagnosis Comments PROCEDURE - RESULT 09/17/2015 12 :00 AM REDUCTION FURNACE OPERATOR HELPER documented in this encounter Results * PROCEDURE - RESULT (09/17/2015 12:00 AM REDUCTION FURNACE OPERATOR HELPER) Narrative 09/17/2015 12:00 AM REDUCTION FURNACE OPERATOR HELPER Ordered by an unspecified provider. Historical Provider Final Res ult documented in this encounter Visit Diagnoses Not on filedocumented in this encounter Care Teams Brusher Relationship Specialty Start Date End Date Guillermina Xie PA [address] [place] [address] PCP - General Physician Systems Integration Engineer 12/06/18 Norm Santiago MD [address] [place] [address] Consulting Physician Family Medicine 12/06/18 documented as of this encounter
--- OUTSIDE RECORDS SUMMARY | 2024-12-21 12:40 | XMS_ITS | Encounter Summary ---
Author Organization [facility] Facility Care Team Providers Care Cadence Specialists Name Role Phone Guillermina Xie Primary Care Provider [phone] Norm Santiago MD Unavailable [phone] Encounter Details Date Type Department Care Team (Latest Contact Info) Description 03/24/2013 Orders Only MMG CLINCONV ProviderPrema MD [address] [place] [id number] Social History Tobacco Use Types Packs/Day Years Used Date Smoking Tobacco: Never Assessed Comments Unknown Sex and Gender Information Value Date Recorded Sex Assigned at Not on file Legal Sex Female 3:08 AM VENETIAN BLIND WASHER Gender Identity Not on file Sexual Orientation Not on file documented as of this encounter Plan of Treatment Not on file documented as of this encounter Procedures Procedure Name Priority Date/Time Associated Diagnosis Comments COLONOSCOPY - SCAN 10/28/2017 12 :00 AM CDT documented in this encounter Results * COLONOSCOPY - SCAN (10/28/2017 12:00 AM CDT) Narrative 10/28/2017 12:00 AM CDT Ordered by an unspecified provider. us Historical Provider Final Res ult documented in this encounter Visit Diagnoses Not on filedocumented in this encounter Care Teams Cadence Specialists Relationship Specialty Start Date End Date Guillermina Xie PA [address] [place] [address] PCP - General Physician Game Programmer 12/06/18 Norm Santiago MD [address] [place] [address] Consulting Physician Family Medicine 12/06/18 documented as of this encounter
== END 2024-12-21 11:50 | disposition home or self-care (01) ==
LOC: CHSIMG 11:55
PROVIDERS: PCP Registered Nurse; Visit Provider Registered Nurse
DX: Z12.31 Encounter for screening mammogram for malignant neoplasm of breast (principal); Z78.0 Asymptomatic menopausal state
CPT/HCPCS: 77063; 77067; 77080

== ENCOUNTER 2025-01-29 08:43 | Outpatient (CLI) | payer MEDICARE, SELFPAY ==
--- OUTSIDE RECORDS SUMMARY | 2025-01-29 08:49 | XMS_ITS | Encounter Summary ---
Author Organization [facility] Facility Care Team Providers Care Core Shaper Top Name Role Phone Guillermina Xie Primary Care Provider [phone] Norm Santiago MD Unavailable [phone] Encounter Details Date Type Department Care Team (Latest Contact Info) Description 09/17/2015 Orders Only MMG CLINCONV ProviderPrmea MD [address] [place] [id number] Social History Tobacco Use Types Packs/Day Years Used Date Smoking Tobacco: Never Assessed Comments Unknown Sex and Gender Information Value Date Recorded Sex Assigned at Not on file Legal Sex Female 3:08 AM SAFETY TECH Gender Identity Not on file Sexual Orientation Not on file documented as of this encounter Plan of Treatment Not on file documented as of this encounter Procedures Procedure Name Priority Date/Time Associated Diagnosis Comments PROCEDURE - RESULT 09/17/2015 12 :00 AM SAFETY TECH documented in this encounter Results * PROCEDURE - RESULT (09/17/2015 12:00 AM SAFETY TECH) Narrative 09/17/2015 12:00 AM SAFETY TECH Ordered by an unspecified provider. Historical Provider Final Res ult documented in this encounter Visit Diagnoses Not on filedocumented in this encounter Care Teams Core Shaper Top Relationship Specialty Start Date End Date Guillermina Xie PA [address] [place] [address] PCP - General Physician Lead Network Architect 12/06/18 Norm Santiago MD [address] [place] [address] Consulting Physician Family Medicine 12/06/18 documented as of this encounter
--- OUTSIDE RECORDS SUMMARY | 2025-01-29 08:49 | XMS_ITS | Clinical Summary ---
Author Organization [address] Address [address] [place] [address] Care Team Providers Care Inpatient Care Manager Rn Name Role Phone Guillermina Xie Primary Care Provider [phone] Norm Santiago MD Unavailable [phone] Allergies Active Allergy Reactions Criticality Noted Date Comments Codeine Phosphate Nausea & Vomiting Low 12/09/2018 Medications cholecalciferol (VITAMIN D-3) 1,000 unit capsule 1,000 Units daily 11/08/2017 Active clobetasol (TEMOVATE) 0.05 % cream 07/03/2019 Active tacrolimus (PROTOPIC) 0.1 % ointment 07/03/2019 Active Active Problems Problem Noted Date Diagnosed Date BMI 29.0-29.9,adult 07/17/2019 Assessment & Plan (07/17/2019 11:27 AM WIG STYLIST): Educated patient on healthy diet/exercise plan. Exercise 150min-300min per week of moderate intensity. Diet: good, healthy protein (eggs, nuts, peanut butter, chicken, fish, turkey, less pork/beef), lots of vegetables, less carbohydrates and less sugar. Flexural eczema 07/17/2019 Assessment & Plan (07/17/2019 11:27 AM WIG STYLIST): Stable on meds Health maintenance examination 06/13/2019 Overview (07/17/2019): PMH: 07/17/2019 Last pap: 10/2017 Last mammogram: 03/2018 Last dexa: Last colonoscopy/cologuard: 02/2013 repeat 2018 Last Hep C: 10/2017 Last tdap: 10/25/2009, 07/17/2019 Last Prevnar/pneumovax: Last Shingrix: 02/2018, 10/2017 Last eye exam: 2019 Assessment & Plan (07/17/2019 9:34 AM WIG STYLIST): PMH: 07/17/2019 Last pap: 10/2017 Last mammogram: 03/2018 Last dexa: Last colonoscopy/cologuard: 02/2013 repeat 2018 Last Hep C: 10/2017 Last tdap: 10/25/2009, 07/17/2019 Last Prevnar/pneumovax: Last Shingrix: 02/2018, 10/2017 Last eye exam: 2019 Vitamin D deficiency 11/08/2017 Assessment & Plan (07/17/2019 11:27 AM WIG STYLIST): Stable, continue vit d CMC arthritis, thumb, degenerative 09/16/2015 Assessment & Plan (07/17/2019 11:27 AM WIG STYLIST): Stable prn otc meds (ibu or tylenol) Resolved Problems Problem Noted Date Diagnosed Date Resolved Date Neck pain 12/09/2018 06/13/2019 Assessment & Plan (12/09/2018 4:06 PM CDT): Handout given on neck exercises. Patient to try massage. Patient to try moist heat 3 times a day. Patient to try [id number] anti-inflammatories as needed. If no improvement in [...] on file Legal Sex Female 3:08 AM WIG STYLIST Gender Identity Not on file Sexual Orientation [...] Plan of Treatment Not on file Insurance [facility] CMR Care Teams Inpatient Care Manager Rn Relationship Specialty Start Date End Date Guillermina Xie PA [address] [place] [address] PCP - General Physician Sign Board Erector 12/06/18 Norm Santiago MD [address] [place], [place] [address] Consulting Physician Family Medicine 12/06/18
--- OUTSIDE RECORDS SUMMARY | 2025-01-29 08:49 | XMS_ITS | Patient Health Record ---
Author Organization [facility] Address [address] [place], [place] [id number] Care Team Providers Care Cafe Associate Name Role Phone Aleksandarbaron DIANE Unavailable Guillermina Xie Unavailable Unavailable Reason For Referral No Information Plan Of Treatment No Information Insurance Providers Payer Name Payer Address Payer Phone Subscriber Number Group Number Insured Name Patient Relationship to Insured Coverage Start Date Coverage End Date [facility] [address] AN[place] Cervantes [phone] [id number] [id number] Self - patient is the insured
--- OUTSIDE RECORDS SUMMARY | 2025-01-29 08:49 | XMS_ITS | Referral Summary ---
Author Organization [address] Address [address] [place] [address] Care Team Providers Care Ordnance Artificer Helper Name Role Phone Guillermina Xie Primary Care Provider Norm Santiago MD Unavailable [phone] Allergies Active Allergy Reactions Criticality Noted Date Comments Codeine Phosphate Nausea & Vomiting Low 12/09/2018 Medications cholecalciferol (VITAMIN D-3) 1,000 unit capsule 1,000 Units daily 11/08/2017 Active clobetasol (TEMOVATE) 0.05 % cream 07/03/2019 Active tacrolimus (PROTOPIC) 0.1 % ointment 07/03/2019 Active Active Problems Problem Noted Date Diagnosed Date BMI 29.0-29.9,adult 07/17/2019 Assessment & Plan (07/17/2019 11:27 AM CHIEF OF PLANNING): Educated patient on healthy diet/exercise plan. Exercise 150min-300min per week of moderate intensity. Diet: good, healthy protein (eggs, nuts, peanut butter, chicken, fish, turkey, less pork/beef), lots of vegetables, less carbohydrates and less sugar. Flexural eczema 07/17/2019 Assessment & Plan (07/17/2019 11:27 AM CHIEF OF PLANNING): Stable on meds Health maintenance examination 06/13/2019 Overview (07/17/2019): PMH: 07/17/2019 Last pap: 10/2017 Last mammogram: 03/2018 Last dexa: Last colonoscopy/cologuard: 02/2013 repeat 2018 Last Hep C: 10/2017 Last tdap: 10/25/2009, 07/17/2019 Last Prevnar/pneumovax: Last Shingrix: 02/2018, 10/2017 Last eye exam: 2019 Assessment & Plan (07/17/2019 9:34 AM CHIEF OF PLANNING): PMH: 07/17/2019 Last pap: 10/2017 Last mammogram: 03/2018 Last dexa: Last colonoscopy/cologuard: 02/2013 repeat 2018 Last Hep C: 10/2017 Last tdap: 10/25/2009, 07/17/2019 Last Prevnar/pneumovax: Last Shingrix: 02/2018, 10/2017 Last eye exam: 2019 Vitamin D deficiency 11/08/2017 Assessment & Plan (07/17/2019 11:27 AM CHIEF OF PLANNING): Stable, continue vit d CMC arthritis, thumb, degenerative 09/16/2015 Assessment & Plan (07/17/2019 11:27 AM CHIEF OF PLANNING): Stable prn otc meds (ibu or tylenol) Resolved Problems Problem Noted Date Diagnosed Date Resolved Date Neck pain 12/09/2018 06/13/2019 Assessment & Plan (12/09/2018 4:06 PM CDT): Handout given on neck exercises. Patient to try massage. Patient to try moist heat 3 times a day. Patient to try [id number] anti-inflammatories as needed. If no improvement in [...] on file Legal Sex Female 3:08 AM CHIEF OF PLANNING Gender Identity Not on file Sexual Orientation [...] Plan of Treatment Not on file Insurance [facility] CMR Care Teams Ordnance Artificer Helper Relationship Specialty Start Date End Date Guillermina Xie PA [address] [place] [address] PCP - General Physician Guinea Pig Breeder 12/06/18 Norm Santiago MD [address] [place] [address] Consulting Physician Family Medicine 12/06/18
--- OUTSIDE RECORDS SUMMARY | 2025-01-29 08:49 | XMS_ITS | Encounter Summary ---
Author Organization [facility] Facility Care Team Providers Care Mailing Section Clerk Name Role Phone Guillermina Xie Primary Care Provider [phone] Norm Santiago MD Unavailable [phone] Encounter Details Date Type Department Care Team (Latest Contact Info) Description 03/24/2013 Orders Only [facility] CLINCONV ProviderPrema MD [address] [place] [address] Social History Tobacco Use Types Packs/Day Years Used Date Smoking Tobacco: Never Assessed Comments Unknown Sex and Gender Information Value Date Recorded Sex Assigned at Not on file Legal Sex Female 3:08 AM CLIENT SUPPORT ASSOCIATE Gender Identity Not on file Sexual Orientation [...] on filedocumented in this encounter Care Teams Mailing Section Clerk Relationship Specialty Start Date End Date Guillermina Xie PA [address] [place] [address] PCP - General Physician Heating And Ventilation Engineer 12/06/18 Norm Santiago MD [address] [place] [address] Consulting Physician Family Medicine 12/06/18 documented as of this encounter
--- NOTE | 2025-01-29 11:00 | NEURO_ITS ---
Impression: # Complains of numbness of right hand. ? # Normal Nerve Conduction Study. ? # No Carpal Tunnel Syndrome or ulnar neuropathy. ? # Normal needle/EMG exam. Nerve Conduction Studies ?Stim Site NR Peak (ms) P-T Amp (?V) Site1 Site2 Delta-P (ms) Dist (cm) Nathan (m/s) Right Median Anti Sensory (2-3nd Digit) Wrist ? 3.2 41.7 Wrist 2-3nd Digit 3.2 14.0 44 Wrist ? 3.0 54.7 Wrist 2-3nd Digit 3.2 14.0 44 Right Radial Anti Sensory (Base 1st Digit) Wrist ? 2.8 12.0 Wrist Base 1st Digit 2.8 0.0 Right Ulnar Anti Sensory (5th Digit) Wrist ? 2.6 14.0 Wrist 5th Digit 2.6 14.0 54 ?Stim Site NR Onset (ms) O-P Amp (mV) Site1 Site2 Delta-0 (ms) Dist (cm) Nathan (m/s) Right Median Motor (Abd Poll Brev) Wrist ? 3.7 3.0 Elbow Wrist 4.7 27.0 57 Elbow ? 8.4 4.2 Right Ulnar Motor (Abd Dig Minimi) Wrist ? 2.6 8.0 A Elbow Wrist 4.6 26.0 57 A Elbow ? 7.2 6.9 B Elbow Wrist 3.6 20.0 56 B Elbow ? 6.2 5.2 Electromyography ?Side Muscle Nerve Root Ins Act Fibs Amp Dur Recrt Comment Right 1stDorInt Ulnar C8-T1 Nml Nml Nml Nml Nml Right Ext Indicis Radial (Post Int) C7-8 Nml Nml Nml Nml Nml Right Ext Digitorum Radial (Post Int) C7-8 Nml Nml Nml Nml Nml Right BrachioRad Radial C5-6 Nml Nml Nml Nml Nml Right PronatorTeres Median C6-7 Nml Nml Nml Nml Nml Right Abd Poll Brev Median C8-T1 Nml Nml Nml Nml Nml Right ABD Dig Min Ulnar C8-T1 Nml Nml Nml Nml Nml Right FlexPolLong Median (Ant Int) C7-8 Nml Nml Nml Nml Nml Right Abd Poll Long Radial (Post Int) C7-8 Nml Nml Nml Nml Nml
== END 2025-01-29 08:44 | disposition home or self-care (01) ==
PROVIDERS: PCP Registered Nurse; Visit Provider Registered Nurse
DX: R20.2 Paresthesia of skin (principal)
CPT/HCPCS: 95886; 95909

== ENCOUNTER 2025-05-18 08:43 | Outpatient (CLI) | payer MEDICARE, SELFPAY ==
--- OUTSIDE RECORDS SUMMARY | 2009-07-15 18:00 | XMS_ITS | Continuity of Care Document ---
Author Organization [facility] Address [address] [place] [address] Care Team Providers Care Web Operations Administrator Name Role Phone Stephen Aly MD Unavailable Unavailable Procedures Procedure Date Echo W/rest & Stress-interp & 0 Cv Stress; Phys Supervs Only Cv Stress; Interpt & Reprt Onl 10 Advance Directives Directive Yes / No Effective Date File Name No Information Encounters Encounter Description Practice Location Reason(s) For Visit Diagnoses Date Provider Providers Copied on Encounter [facility], [address] [place] [address], [facility], [facility] No Information 0 Jermain Mitchell. [address] [place] [address], [address] [place], [place], [facility], . tel:[phone] Referring Provider: Faby Jones DO, Diann Farnsworth , [place], [place], [facility]. tel:[phone] Family History Family Member Type Diagnosis Age At Onset No Information Payers Payer name Insurance type Covered democrat ID Farideh serra(s) Tiffanie POS [id number] CI [id number] Social History Type Description Quantity Date Captured Comments Sex Female Smoking Status No Information Chief Complaint And Reason For Visit No Information Reason For Referral Reason For Referral No Information History Of Present Illness Encounter Date Complaint History Of Prese nt Illness No Information Functional Status Date Functional Assessmen t No Information Instructions Date Instruction Additional Infor mation No Information Assessments Type Assessment Date No Information Patient Care Teams Name Effective Dates (start - stop) Status Members No Information
--- OUTSIDE RECORDS SUMMARY | 2025-05-18 09:03 | XMS_ITS | Patient Health Record ---
Author Organization [facility] Address [address] [place], [place] [id number] Care Team Providers Care Share Dairy Farmer Name Role Phone DIANE Perdomo Unavailable [phone] CloinDallina Unavailable Unavailable Reason For Referral No Information Social History Social History Additional Details Category Social Info Options Details Migrated Social History Migrated Social History Alcohol intake : , History of tobacco use : , Smoking Status : Former smoker Plan Of Treatment No Information Insurance Providers Payer Name Payer Address Payer Phone Subscriber Number Group Number Insured Name Patient Relationship to Insured Coverage Start Date Coverage End Date [facility] [address] [place] Cervantes [phone] [id number] YUE [id number] Self - patient is the insured
--- OUTSIDE RECORDS SUMMARY | 2025-05-18 09:03 | XMS_ITS | Encounter Summary ---
Author Organization [facility] Facility Care Team Providers Care Communications Consultant Name Role Phone Guillermina Xie Primary Care Provider [phone] Norm Santiago MD Unavailable [phone] Encounter Details Date Type Department Care Team (Latest Contact Info) Description 09/17/2015 Orders Only [facility] CLINCONV ProviderPrema MD [address] [place] [address] Social History Tobacco Use Types Packs/Day Years Used Date Smoking Tobacco: Never Assessed Comments Unknown Sex and Gender Information Value Date Recorded Sex Assigned at Not on file Legal Sex Female 3:08 AM ADMINISTRATIVE PROJECT COORDINATOR Gender Identity Not on file Sexual Orientation Not on file documented as of this encounter Plan of Treatment Not on file documented as of this encounter Procedures Procedure Name Priority Date/Time Associated Diagnosis Comments PROCEDURE - RESULT 09/17/2015 12 :00 AM ADMINISTRATIVE PROJECT COORDINATOR documented in this encounter Results * PROCEDURE - RESULT (09/17/2015 12:00 AM ADMINISTRATIVE PROJECT COORDINATOR) Narrative 09/17/2015 12:00 AM ADMINISTRATIVE PROJECT COORDINATOR Ordered by an unspecified provider. Historical Provider Final Res ult documented in this encounter Visit Diagnoses Not on filedocumented in this encounter Care Teams Communications Consultant Relationship Specialty Start Date End Date Guillermina Xie PA [address] [place] [address] PCP - General Physician Time Study Observer 12/06/18 Norm Santiago MD [address] [place] [address] Consulting Physician Family Medicine 12/06/18 documented as of this encounter
--- OUTSIDE RECORDS SUMMARY | 2025-05-18 09:03 | XMS_ITS | Clinical Summary ---
Author Organization [facility] Address [address] [place] [address] Care Team Providers Care Justice Court Deputy Clerk Name Role Phone Guillermina Xie Primary Care Provider Social History Tobacco Use Types Packs/Day Years Used Date Smoking Tobacco: Never Assessed Comments Unknown Sex and Gender Information Value Date Recorded Sex Assigned at Not on file Legal Sex Female 6:13 PM CDT Gender Identity Not on file Sexual Orientation Not on file Plan of Treatment Health Maintenance Due Date Last Done Comments Colorectal Cancer Screening Colonoscopy (10 Years) 1955 Hepatitis C 1975 DTaP, Tdap and Td Vaccines ( 1 - Tdap) 01/11/1976 Mammogram Screening 1997 Pneumococcal Vaccine: 50+ Ye ars (1 of 1 - PCV) 2007 Zoster Vaccines (1 of 2) 2007 Dexa Scan (General) 2022 COVID-19 Vaccine (1 - 2024-2 6 season) 2025 Influenza Adult (#1) 2025 RSV Immunization or 60+ Years (1 - 1-dose 75+ series) 01/11/2032 Hepatitis A Vaccines Aged Out No long er eligible based on patient's age to complete this topic Meningococcal B Vaccine Aged Out No l onger eligible based on patient's age to complete this topic Meningococcal Vaccine Aged Out No maria t herlinda eligible based on patient's age to complete this topic RSV Immunizations Under 20 Months Aged Out No longer eligible based on patient's age to complete this topic Care Teams Justice Court Deputy Clerk Relationship Specialty Start Date End Date Guillermina Xie PA [address] [place] [address] PCP - General 07/31/15
--- OUTSIDE RECORDS SUMMARY | 2025-05-18 09:03 | XMS_ITS | Clinical Summary ---
Author Organization [address] Address [address] [place] [address] Care Team Providers Care Licensing Court Magistrate Name Role Phone Guillermina Xie Primary Care Provider [phone] Norm Santiago MD Unavailable [phone] Allergies Active Allergy Reactions Criticality Noted Date Comments Codeine Phosphate Nausea & Vomiting Low 12/09/2018 Medications cholecalciferol (VITAMIN D-3) 1,000 unit capsule 1,000 Units daily 11/08/2017 Active clobetasol (TEMOVATE) 0.05 % cream 07/03/2019 Active tacrolimus (PROTOPIC) 0.1 % ointment 07/03/2019 Active Active Problems Problem Noted Date Diagnosed Date BMI 29.0-29.9,adult 07/17/2019 Assessment & Plan (07/17/2019 11:27 AM MECHANICAL PENCILS ASSEMBLER): Educated patient on healthy diet/exercise plan. Exercise 150min-300min per week of moderate intensity. Diet: good, healthy protein (eggs, nuts, peanut butter, chicken, fish, turkey, less pork/beef), lots of vegetables, less carbohydrates and less sugar. Flexural eczema 07/17/2019 Assessment & Plan (07/17/2019 11:27 AM MECHANICAL PENCILS ASSEMBLER): Stable on meds Health maintenance examination 06/13/2019 Overview (07/17/2019): PMH: 07/17/2019 Last pap: 10/2017 Last mammogram: 03/2018 Last dexa: Last colonoscopy/cologuard: 02/2013 repeat 2018 Last Hep C: 10/2017 Last tdap: 10/25/2009, 07/17/2019 Last Prevnar/pneumovax: Last Shingrix: 02/2018, 10/2017 Last eye exam: 2019 Assessment & Plan (07/17/2019 9:34 AM MECHANICAL PENCILS ASSEMBLER): PMH: 07/17/2019 Last pap: 10/2017 Last mammogram: 03/2018 Last dexa: Last colonoscopy/cologuard: 02/2013 repeat 2018 Last Hep C: 10/2017 Last tdap: 10/25/2009, 07/17/2019 Last Prevnar/pneumovax: Last Shingrix: 02/2018, 10/2017 Last eye exam: 2019 Vitamin D deficiency 11/08/2017 Assessment & Plan (07/17/2019 11:27 AM MECHANICAL PENCILS ASSEMBLER): Stable, continue vit d CMC arthritis, thumb, degenerative 09/16/2015 Assessment & Plan (07/17/2019 11:27 AM MECHANICAL PENCILS ASSEMBLER): Stable prn otc meds (ibu or tylenol) Resolved Problems Problem Noted Date Diagnosed Date Resolved Date Neck pain 12/09/2018 06/13/2019 Assessment & Plan (12/09/2018 4:06 PM CDT): Handout given on neck exercises. Patient to try massage. Patient to try moist heat 3 times a day. Patient to try [id number]-[id number] anti-inflammatories as needed. If no improvement in [...] on file Legal Sex Female 3:08 AM MECHANICAL PENCILS ASSEMBLER Gender Identity Not on file Sexual Orientation [...] [facility] CMR Care Teams Licensing Court Magistrate Relationship Specialty Start Date End Date Guillermina Xie PA [address] [place], [place] [address] PCP - General Physician Water Quality Assistant 12/06/18 Norm Santiago MD [address] [place] [address] Consulting Physician Family Medicine 12/06/18
--- OUTSIDE RECORDS SUMMARY | 2025-05-18 09:03 | XMS_ITS | Encounter Summary ---
Author Organization [facility] Facility Care Team Providers Care Motor Coach Tour Operator Name Role Phone Guillermina Xie Primary Care Provider [phone] Norm Santiago MD Unavailable [phone] Encounter Details Date Type Department Care Team (Latest Contact Info) Description 03/24/2013 Orders Only [facility]G CLINCONV ProviderPrema MD [address] [place] [address] Social History Tobacco Use Types Packs/Day Years Used Date Smoking Tobacco: Never Assessed Comments Unknown Sex and Gender Information Value Date Recorded Sex Assigned at Not on file Legal Sex Female 3:08 AM CYTOTECHNOLOGIST/HISTOTECHNOLOGIST Gender Identity Not on file Sexual Orientation [...] on filedocumented in this encounter Care Teams Motor Coach Tour Operator Relationship Specialty Start Date End Date Guillermina Xie PA [address] [place] [address] PCP - General Physician Candy Maker 12/06/18 Norm Santiago MD [address] [place] [address] Consulting Physician Family Medicine 12/06/18 documented as of this encounter
--- NOTE | 2025-05-21 08:50 | WPDHOLTEREM ---
Holter/Event Monitor Holter/Event Monitor Date of procedure: 05/18/25 Holter/Event Procedure: 48 Hr Holter Monitor Indications: Palpitations Conclusion: 1. 48 hour holter monitor on 05/18/25. 2. Underlying rhythm is sinus rhythm. HR range 54-125 bpm; aveage 73 bpm. 3. There are 50 premature supraventricular complexes. 1 episode of supraventricular tachycardia at 145 bpm lasting 4 beats. 4. There are 14 premature ventricular complexes. No ventricular tachycardia. 5. No significant pauses greater than 2 seconds. 6. Patient reports symptosm of tinges, flutter and right arm discomfort which demonstrate sinus rhythm, HR range 67-86 bpm.
== END 2025-05-18 08:44 | disposition home or self-care (01) ==
LOC: CHSCARD 08:44
PROVIDERS: PCP Registered Nurse; Visit Provider Registered Nurse
DX: R00.2 Palpitations (principal)
CPT/HCPCS: 93246

== ENCOUNTER 2025-06-26 12:12 | Outpatient (CLI) | payer MEDICARE, SELFPAY ==
--- NOTE | 2025-06-26 12:19 | ECHO_ITS ---
Patient Info Name: Katiuska White Age: 70 years : 1955 Gender: Female Ht: 64 in Wt: 170 lbs BSA: 1.89 m2 HR: 54 bpm BP: 157 / 90 mmHg Technical Quality: Good Exam Date: 06/26/2025 12:32 PM Patient Status: O Admit Date: 06/26/2025 Exam Type: CA echo doppler color flow Complete two-dimensional, color flow and Doppler transthoracic echocardiogram is performed. Timers Inspector: Dawood Brandt III Attending Provider: Wellington Diaz Summary 1. Complete two-dimensional, color flow and Doppler transthoracic echocardiogram is performed. 2. Left ventricular chamber dimension is normal. 3. Left ventricular systolic function is normal, estimated at 60-65. 4. The left ventricular diastolic function is grade I diastolic dysfunction. 5. E/e' 10 is mildly elevated. 6. There is trace mitral valve regurgitation. 7. There is mild tricuspid valve regurgitation. 8. No pulmonary hypertension, estimated pulmonary arterial systolic pressure is 24 mmHg. Left Ventricle E/e' 10 is mildly elevated. Left ventricular chamber dimension is normal. Left ventricular systolic function is normal, estimated at 60-65. The left ventricular diastolic function is grade I diastolic dysfunction. Right Ventricle Right ventricular chamber dimension is normal. Right ventricular systolic function is normal and with normal TAPSE 2.5 cm. Left Atria Left atrial chamber dimension is normal. Right Atria Right atrial chamber dimension is normal. Aortic Valve The aortic valve is trileaflet. There is no aortic valve stenosis. There is no aortic valve regurgitation. Pulmonic Valve There is no pulmonic regurgitation. Mitral Valve There is no mitral valve stenosis. There is trace mitral valve regurgitation. Tricuspid Valve There is mild tricuspid valve regurgitation. No pulmonary hypertension, estimated pulmonary arterial systolic pressure is 24 mmHg. Pericardium/Pleural There is no pericardial effusion. Inferior Vena Cava Normal inferior vena cava with >50% collapse upon inspiration consistent with normal right atrial pressure, 5 mmHg. Aorta The aortic root size at the sinus of Valsalva is normal. Left Ventricular Outflow Tract Name Value Normal LVOT 2D LVOT Diameter 2.1 cm LVOT Doppler LVOT Peak Velocity 91 cm/s LVOT Peak Gradient 3 mmHg LVOT Mean Gradient 2 mmHg LVOT VTI 20 cm LVOT VTI/AV VTI Ratio 1.0 LVOT Stroke Volume 70 ml LVOT CO 4.7 l/min LVOT CI 2.5 l/min/m2 Pulmonic Valve Name Value Normal PV Doppler PV Peak Velocity 79 cm/s PV Peak Gradient 2 mmHg PV Mean Gradient 1 mmHg Mitral Valve Name Value Normal MV Doppler MV Peak Gradient 5 mmHg MV Mean Gradient 1 mmHg MV Area (Cont Eq VTI) 3.4 cm2 MV Diastolic Function MV E Peak Velocity 57 cm/s MV A Peak Velocity 107 cm/s MV E/A 0.5 MV Decel Time (PW) 345 ms MV Annular TDI MV E/e' (Septal) 10.8 MV E/e' (Lateral) 10.2 MV E/e' (Average) 10.5 Tricuspid Valve Name Value Normal TV Regurgitation Doppler TR Peak Velocity 219 cm/s TR Peak Gradient 19 mmHg Estimated PAP/RSVP RA Pressure 5 mmHg <=5 PA Systolic Pressure 24 mmHg <36 RV Systolic Pressure 24 mmHg <36 TV Annular TDI TV Lateral Siria s' Velocity 17.7 cm/s >=9.5 Aortic Valve Name Value Normal AV Doppler AV Peak Velocity 104 cm/s AV Peak Gradient 4 mmHg AV Mean Gradient 2 mmHg AV VTI 21 cm AV Area (Cont Eq VTI) 3.4 cm2 >=3.0 AV Area (Cont Eq Nathan) 3.1 cm2 AV DI (Nathan) 0.87 AV Regurgitation 2D LVOT Area 3.6 cm2 Ventricles Name Value Normal LV Dimensions 2D/MM IVS Diastolic Thickness (2D) 1.0 cm 0.6-1.0 LVID Diastole (2D) 4.9 cm 3.8-5.2 LVIW Diastolic Thickness (2D) 0.9 cm 0.6-0.9 LVID Systole (2D) 3.3 cm 2.2-3.5 LVOT Diameter 2.1 cm LV Mass (2D Cubed) 158.72 g 67.00-162.00 LV Mass Index (2D Cubed) 84 g/m2 43-95 Relative Wall Thickness (2D) 0.35 <=0.42 LV Fractional Shortening/Ejection Fraction 2D/MM LV Fractional Shortening (2D) 33 % 27-45 LV EF (2D Teichholz) 61 % LV Diastolic Volume (4C MOD) 58 ml LV EF (4C MOD) 63 % LV Diastolic Volume (2C MOD) 55 ml LV EF (2C MOD) 66 % LV Diastolic Volume (BP MOD) 57 ml 46-106 LV Diastolic Volume Index (BP MOD) 30 ml/m2 29-61 LV Systolic Volume (BP MOD) 20 ml 14-42 LV Systolic Volume Index (BP MOD) 11 ml/m2 8-24 LV EF (BP MOD) 65 % 54-74 LV Diastolic Length (4C) 6.7 cm LV Systolic Length (4C) 4.9 cm LV Stroke Volume (4C MOD) 37 ml Atria Name Value Normal LA Dimensions LA Volume (4C A-L) 45 ml LA Volume (BP A-L) 50 ml RA Dimensions RA Systolic Major [place] Length (4C) 5.0 cm 2.2-2.8 RA Area (4C) 15.1 cm2 <=18.0 Report Signatures
--- OUTSIDE RECORDS SUMMARY | 2025-06-26 14:17 | XMS_ITS | Clinical Summary ---
Author Organization [address] Address [address] [place] [address] Care Team Providers Care Business Planning Analyst Name Role Phone Guillermina Xie Primary Care Provider [phone] Norm Santiago MD Unavailable [phone] Allergies Active Allergy Reactions Criticality Noted Date Comments Codeine Phosphate Nausea & Vomiting Low 12/09/2018 Medications cholecalciferol (VITAMIN D-3) 1,000 unit capsule 1,000 Units daily 11/08/2017 Active clobetasol (TEMOVATE) 0.05 % cream 07/03/2019 Active tacrolimus (PROTOPIC) 0.1 % ointment 07/03/2019 Active Active Problems Problem Noted Date Diagnosed Date BMI 29.0-29.9,adult 07/17/2019 Assessment & Plan (07/17/2019 11:27 AM EXPORT COORDINATOR): Educated patient on healthy diet/exercise plan. Exercise 150min-300min per week of moderate intensity. Diet: good, healthy protein (eggs, nuts, peanut butter, chicken, fish, turkey, less pork/beef), lots of vegetables, less carbohydrates and less sugar. Flexural eczema 07/17/2019 Assessment & Plan (07/17/2019 11:27 AM EXPORT COORDINATOR): Stable on meds Health maintenance examination 06/13/2019 Overview (07/17/2019): PMH: 07/17/2019 Last pap: 10/2017 Last mammogram: 03/2018 Last dexa: Last colonoscopy/cologuard: 02/2013 repeat 2018 Last Hep C: 10/2017 Last tdap: 10/25/2009, 07/17/2019 Last Prevnar/pneumovax: Last Shingrix: 02/2018, 10/2017 Last eye exam: 2019 Assessment & Plan (07/17/2019 9:34 AM EXPORT COORDINATOR): PMH: 07/17/2019 Last pap: 10/2017 Last mammogram: 03/2018 Last dexa: Last colonoscopy/cologuard: 02/2013 repeat 2018 Last Hep C: 10/2017 Last tdap: 10/25/2009, 07/17/2019 Last Prevnar/pneumovax: Last Shingrix: 02/2018, 10/2017 Last eye exam: 2019 Vitamin D deficiency 11/08/2017 Assessment & Plan (07/17/2019 11:27 AM EXPORT COORDINATOR): Stable, continue vit d CMC arthritis, thumb, degenerative 09/16/2015 Assessment & Plan (07/17/2019 11:27 AM EXPORT COORDINATOR): Stable prn otc meds (ibu or tylenol) Resolved Problems Problem Noted Date Diagnosed Date Resolved Date Neck pain 12/09/2018 06/13/2019 Assessment & Plan (12/09/2018 4:06 PM CDT): Handout given on neck exercises. Patient to try massage. Patient to try moist heat 3 times a day. Patient to try wzlv-[id number] anti-inflammatories as needed. If no improvement in [...] on file Legal Sex Female 3:08 AM EXPORT COORDINATOR Gender Identity Not on file Sexual [...] Plan of Treatment Not on file Insurance [facility] CMR Care Teams Business Planning Analyst Relationship Specialty Start Date End Date Guillermina Xie PA [address] [place], [place] [id number] PCP - General Physician Marine Technician 12/06/18 Norm Santiago MD [address] [place] [address] Consulting Physician Family Medicine 12/06/18
--- OUTSIDE RECORDS SUMMARY | 2025-06-26 14:17 | XMS_ITS | Patient Health Record ---
Author Organization [facility] Address [address] [place], [place] [id number] Care Team Providers Care Recreation Counselor Name Role Phone DIANE Perdomo Unavailable CloinDallina Unavailable Unavailable Reason For Referral No [...] Insured Coverage Start Date Coverage End Date [facility] [address] [place] [phone] [id number] YUE BIGGS Self - patient is the insured
--- OUTSIDE RECORDS SUMMARY | 2025-06-26 14:17 | XMS_ITS | Encounter Summary ---
Author Organization [facility] Facility Care Team Providers Care Pineapple Plantation Manager Name Role Phone Guillermina Xie Primary Care Provider [phone] Norm Santiago MD Unavailable [phone] Encounter Details Date Type Department Care Team (Latest Contact Info) Description 03/24/2013 Orders Only MMG CLINCONV ProviderPrema MD [address] [place] [address] Social History Tobacco Use Types Packs/Day Years Used Date Smoking Tobacco: Never Assessed Comments Unknown Sex and Gender Information Value Date Recorded Sex Assigned at Not on file Legal Sex Female 3:08 AM SAND HAULER Gender Identity Not on file Sexual Orientation [...] on filedocumented in this encounter Care Teams Pineapple Plantation Manager Relationship Specialty Start Date End Date Guillermina Xie PA [address] [place] [address] PCP - General Physician Tubing Tester 12/06/18 Norm Santiago MD [address] [place] [address] Consulting Physician Family Medicine 12/06/18 documented as of this encounter
--- OUTSIDE RECORDS SUMMARY | 2025-06-26 14:17 | XMS_ITS | Encounter Summary ---
Author Organization [facility] Care Team Providers Care Editor Index Name Role Phone Guillermina Xie Primary Care Provider [phone] Norm Santiago MD Unavailable [phone] Encounter Details Date Type Department Care Team (Latest Contact Info) Description 09/17/2015 Orders Only [facility]INCON[facility] ProviderPrema MD [address] [place] [id number] Social History Tobacco Use Types Packs/Day Years Used Date Smoking Tobacco: Never Assessed Comments Unknown Sex and Gender Information Value Date Recorded Sex Assigned at Not on file Legal Sex Female 3:08 AM EYE TECHNICIAN Gender Identity Not on file Sexual Orientation Not on file documented as of this encounter Plan of Treatment Not on file documented as of this encounter Procedures Procedure Name Priority Date/Time Associated Diagnosis Comments PROCEDURE - RESULT 09/17/2015 12 :00 AM EYE TECHNICIAN documented in this encounter Results * PROCEDURE - RESULT (09/17/2015 12:00 AM EYE TECHNICIAN) Narrative 09/17/2015 12:00 AM EYE TECHNICIAN Ordered by an unspecified provider. Historical Provider Final Res ult documented in this encounter Visit Diagnoses Not on filedocumented in this encounter Care Teams Editor Index Relationship Specialty Start Date End Date Guillermina Xie PA [address] [place] [address] PCP - General Physician Railcar Mechanic 12/06/18 Norm Santiago MD [address] [place] [address] Consulting Physician Family Medicine 12/06/18 documented as of this encounter
--- OUTSIDE RECORDS SUMMARY | 2025-06-26 14:17 | XMS_ITS | Clinical Summary ---
Author Organization [facility] Address [address] [place] [id number] Care Team Providers Care Manager Licensing Name Role Phone Guillermina Xie Primary Care Provider [phone] Social History Tobacco Use Types Packs/Day Years [...] age to complete this topic Care Teams Manager Licensing Relationship Specialty Start Date End Date Guillermina Xie PA [address] [place] [address] PCP - General 07/31/15
== END 2025-06-26 12:13 | disposition home or self-care (01) ==
PROVIDERS: PCP Registered Nurse; Visit Provider Registered Nurse
DX: R00.2 Palpitations (principal); I07.1 Rheumatic tricuspid insufficiency; I50.30 Unspecified diastolic (congestive) heart failure
CPT/HCPCS: 93306